=== PATIENT | female | born 1955 | race Caucasian/White ===

== ENCOUNTER → 2023-08-31 13:34 | Outpatient (REF) | payer MEDICARE, OTHER, SELFPAY ==
[2023-08-31 14:40] LABS: Vitamin D, 25-OH*** 47.2 ng/mL (30-80)
== END ==
LOC: RAD 13:34
PROVIDERS: ATTENDING PHYSICIAN Internal Medicine Rheumatology
DX: L40.59 Other psoriatic arthropathy (principal); E55.9 Vitamin D deficiency, unspecified
CPT/HCPCS: 36415; 73130; 82306

== ENCOUNTER → 2023-12-03 15:29 | Outpatient (REF) | payer MEDICARE, OTHER, SELFPAY ==
[2023-12-03 19:33] LABS: % Eosinophils 1.9 % (0-6); % Immature Granulocytes 0.5 % (0-0.5); % Lymphocytes 31.4 % (20.5-51.1); % Monocytes 9.7 % (1.7-9.3); % Neutrophils 55.5 % (42.2-75.2); Absolute Eosinophils 0.1 10^3/uL (0-0.7); Absolute Lymphocytes 1.3 10^3/uL (1.2-3.4); Absolute Monocytes 0.4 10^3/uL (0.1-0.6); Absolute Neutrophils 2.3 10^3/uL (1.4-6.5); Hematocrit 41.3 % (37.0-47.0); Hemoglobin 12.9 g/dL (12.0-16.0); Mean Corp Hgb Conc. 31.2 g/dL (33.0-37.0); Mean Corpuscular Hgb 30.1 pg (27.0-31.0); Mean Corpuscular Volume 96.5 fL (81.0-99.0); Mean Platelet Volume 11.1 fL (7.4-10.4); Nucleated Red Blood Cells % 0 %; Platelet Count 262 10^3/uL (130-400); Red Blood Cell Count 4.28 10^6/uL (4.20-5.40); White Blood Cell Count 4.1 10^3/uL (4.8-10.8)
[2023-12-03 19:39] LABS: ALT (SGPT) 15 U/L (0-35); AST (SGOT) 24 U/L (14-36); Albumin 4.2 g/dl (3.5-5.0); Alkaline Phosphatase 56 U/L (38-126); Blood Urea Nitrogen 26 mg/dl (7-17); Calcium 9.9 mg/dl (8.4-10.2); Carbon Dioxide 27 mmol/L (22-30); Chloride 103 mmol/L (98-107); Glucose 89 mg/dl (70-99); HDL Cholesterol 79 mg/dl; LDL Cholesterol, Calculated 140 mg/dl; Potassium 4.7 mmol/L (3.5-5.1); Sodium 137 mmol/L (135-145); Total Cholesterol 232 mg/dl (50-199); Total Protein 7.1 g/dl (6.3-8.2); Triglyceride 67 mg/dl (10-149); Very Low Density Lipoprotein 13 mg/dl (0-30); eGFR 54.39
[2023-12-03 20:09] LABS: TSH < 0.02 uIU/ml (0.47-4.68)
== END ==
LOC: CLAB 15:29
PROVIDERS: ATTENDING PHYSICIAN Family Medicine
DX: D72.819 Decreased white blood cell count, unspecified (principal); E78.00 Pure hypercholesterolemia, unspecified; E05.90 Thyrotoxicosis, unspecified without thyrotoxic crisis or storm
CPT/HCPCS: 36415; 80053; 80061; 84443; 85025

== ENCOUNTER → 2023-12-15 09:51 | Outpatient (REF) | payer MEDICARE, OTHER, SELFPAY ==
[2023-12-15 11:10] LABS: % Basophils 0.8 % (0-2); % Eosinophils 1.9 % (0-6); % Immature Granulocytes 0.3 % (0-0.5); % Lymphocytes 32.2 % (20.5-51.1); % Monocytes 10.2 % (1.7-9.3); % Neutrophils 54.6 % (42.2-75.2); Absolute Eosinophils 0.1 10^3/uL (0-0.7); Absolute Lymphocytes 1.2 10^3/uL (1.2-3.4); Absolute Monocytes 0.4 10^3/uL (0.1-0.6); Hematocrit 35.4 % (37.0-47.0); Hemoglobin 11.6 g/dL (12.0-16.0); Mean Corp Hgb Conc. 32.8 g/dL (33.0-37.0); Mean Corpuscular Hgb 30.4 pg (27.0-31.0); Mean Corpuscular Volume 92.9 fL (81.0-99.0); Mean Platelet Volume 10.9 fL (7.4-10.4); Nucleated Red Blood Cells % 0 %; Platelet Count 235 10^3/uL (130-400); Red Blood Cell Count 3.81 10^6/uL (4.20-5.40); Red Cell Dist. Width 13.9 % (11.5-14.5); White Blood Cell Count 3.6 10^3/uL (4.8-10.8)
[2023-12-15 11:40] LABS: Erythrocyte Sed Rate 13 mm/hour (0-20)
[2023-12-15 11:43] LABS: ALT (SGPT) 17 U/L (0-35); AST (SGOT) 22 U/L (14-36); Albumin 3.9 g/dl (3.5-5.0); Alkaline Phosphatase 41 U/L (38-126); Blood Urea Nitrogen 21 mg/dl (7-17); Calcium 9.8 mg/dl (8.4-10.2); Carbon Dioxide 27 mmol/L (22-30); Chloride 104 mmol/L (98-107); Glucose 85 mg/dl (70-99); Potassium 4.5 mmol/L (3.5-5.1); Sodium 137 mmol/L (135-145); Total Bilirubin 1.1 mg/dl (0.2-1.3); Total Protein 6.4 g/dl (6.3-8.2); eGFR 54.39
[2023-12-15 12:01] LABS: C-Reactive Protein < 5.00 mg/L (0.0-10.00)
== END ==
LOC: REG 09:51
PROVIDERS: ATTENDING PHYSICIAN Internal Medicine Rheumatology; FAMILY PHYSICIAN Family Medicine
DX: L40.59 Other psoriatic arthropathy (principal)
CPT/HCPCS: 36415; 80053; 85025; 85652; 86140

== ENCOUNTER 2024-01-18 11:04 | Emergency (ER) | payer MEDICARE, OTHER, SELFPAY ==
[2024-01-18 11:12] VITALS: BP 101/65
--- NOTE | 2024-01-18 13:02 | ED.GENMED ---
History of Present Illness
General
Chief Complaint: Musculo-Skeletal Complaint
Source: patient and family
Exam Limitations: none
Time Seen by Provider: 01/18/24 12:31
History of Present Illness
History of Present Illness:
68-year-old female presents with pain in her right buttock down her right leg. Patient states she was moving some furniture after her son had painted yesterday. Patient states that the pain gradually is worsened. She admits that she did not fall.
She is unable to pinpoint pain as she states it seems deep. She does have history of psoriatic arthritis. Patient has been taking Aleve at home. She did not take anything today. She denies bowel or bladder incontinence. No motor weakness.
Does report some back pain.
Past History
Past History
ED Past Medical History: Other (psoriatic arthritis, restless leg, irritable bowel syndrome, GERD, fibroid, leukopenia)
Social History
Tobacco: Non-smoker
Alcohol: None
Drug: None
Personal:
Living: with family
Phy Exam
Physical Exam
Physical Exam:
CONSTITUTIONAL Patient alert and oriented to person, place and time. Well-appearing. Vital signs reviewed.
HEAD atraumatic, normocephalic.
EYES eyelids normal to inspection, Extraocular muscles intact, Conjunctiva normal, Sclera normal.
NECK normal range of motion, Trachea midline, no jugular venous distention.
RESPIRATORY CHEST No respiratory distress noted, Chest expansion equal
ABDOMEN No distention.
BACK normal inspection, no obvious deformities, moderate right lumbar paraspinal tenderness
UPPER EXTREMITY range of motion normal, Motor strength normal, no cyanosis, no edema.
LOWER EXTREMITY range of motion normal, Motor strength normal, no cyanosis, no edema. Normal distal perfusion. No pain with internal or external rotation actively or passively of the hip. No pain with active or passive flexion of the hip.
Positive straight leg raise at about 45 degrees.
NEURO Speech normal, No focal motor deficits, Corine coma scale 15, Memory normal, Cranial Nerves intact to screening exam.
SKIN skin warm, dry, and normal in color.
PSYCHIATRIC patient oriented to person place and time, Normal affect.
Course
Orders/Labs/Results
Orders:
Orders
01/18/24 13:01
Ketorolac [Toradol] 60 mg IM NOW STA
Prednisone [Deltasone] 50 mg PO NOW STA
Vital Signs
Initial and Last Documented VS:
Initial Vital Signs
Temp Pulse Resp BP Pulse Ox
98.2 F 70 16 101/65 98
01/18/24 11:12 01/18/24 11:12 01/18/24 11:12 01/18/24 11:12 01/18/24 11:12
Last Documented Vital Signs
Temp Pulse Resp BP Pulse Ox
98.2 F 70 16 101/65 98
01/18/24 11:12 01/18/24 11:12 01/18/24 11:12 01/18/24 11:12 01/18/24 11:12
MDM/Problems Addressed
Differential Diagnosis Includes:
Bursitis, subluxation, dislocation, fracture, septic arthritis, arthritis, lidocaine
MDM/Problems Addressed:
Lumbar radiculopathy, chronic psoriatic arthritis
*Pulse Oximetry
Patient hypoxic: no
*Critical Care Note
Total Time (30-74mins, 75-104mins- exclusive of procedures): Not Applicable
Data Reviewed
Source: patient and family
Prescriptions/Medications Considered But Not Given:
Consider narcotics for pain control the patient states that she does not take narcotics
Further Testing Considered But Not Given:
Considered imaging of the hip but patient with no fall. No clinical suspicion for actual joint dysfunction as she is full normal range of motion without pain
Patient Management
Escalation/DeEscalation of care consider admission/obs:
68-year-old female who presents with pain in the right leg after lifting furniture. I suspect lumbar radiculopathy. Trial steroids and outpatient follow-up. Continue NSAIDs as an outpatient
ED Attending Note
-
Portions of this chart may have been created with voice recognition software.� Occasional wrong word or��sound alike� substitutions may have occurred due to the inherent limitations of voice recognition software.
Discharge Plan
Departure
Patient Disposition: Home (Routine Discharge)
Date of Disposition: 01/18/24
Time of Disposition: 13:02
Patient with high blood pressure during this ER visit?: No
Discharge Problem:
Acute lumbar radiculopathy
Instructions: Radiculopathy (DC)
Prescriptions:
New
prednisone 10 mg Tablet
See Rx Instructions .ROUTE .COMPLEX Qty: 45 0RF
Rx Instructions:
Take By Mouth:
50 mg daily x3 days, 40 mg daily x3 days,
30 mg daily x3 days, 20 mg daily x3 days,
10 mg daily x3 days
No Action
fexofenadine [Emma] 180 MG tablet
180 mg PO DAILY
duloxetine 60 MG capsule,delayed release(DR/EC)
60 mg PO DAILY
L.acidoph, paracasei,B. lactis 1 EACH capsule
1 ea PO DAILY
ascorbic acid (vitamin C) [Vitamin C] 500 MG tablet
500 mg PO DAILY
pantoprazole 40 MG tablet,delayed release (DR/EC)
40 mg PO DAILY
fiber [Fiber Off] 1 EACH tablet
1 tab PO BID
magnesium 250 MG tablet
250 mg PO DAILY
cholecalciferol (vitamin D3) 2,000 UNITS tablet
2,000 units PO DAILY
calcium-vitamin D3-vitamin K 1 EACH tablet,chewable
1 ea PO DAILY
Dim 300 MG
1 tab PO DAILY
mupirocin 1 APPLIC ointment
1 applic intranasal BID Qty: 1 0RF
diazepam [Valium] 5 MG tablet
0.5 - 1 tab PO HSPRN PRN (Reason: Anxiety)
sennosides [senna] 1 TABLET tablet
2 tab PO BID 0RF
lidocaine [Aspercreme (lidocaine)] 1 PATCH adhesive patch,medicated
2 patch topical DAILY Qty: 14 0RF
Rx Instructions:
Over the counter. Remove nightly.
Apply to left thigh. Do not place over incision.
aspirin 325 MG tablet
325 mg PO DAILY Qty: 28 0RF
Rx Instructions:
Take daily x4 weeks for blood clot prevention.
docusate sodium 100 MG capsule
100 mg PO BID 0RF
acetaminophen 500 MG tablet
1,000 mg PO Q6H Qty: 60 0RF
Rx Instructions:
Do not exceed >4000 mg daily.
hydromorphone 2 MG tablet
2 mg PO Q4HPRN PRN (Reason: moderate-severe pain) Qty: 30 0RF
Rx Instructions:
1 tab moderate pain or 2 if pain severe
dx total joint
ongoing therapy
celecoxib 200 MG capsule
200 mg PO DAILY Qty: 30 0RF
Rx Instructions:
Take with food.
Do not take within 2 hours of Aspirin.
famotidine 40 MG tablet
40 mg PO HS Qty: 0 0RF
docosahexaenoic acid-epa 1 CAP capsule
1 cap PO DAILY Qty: 0 0RF
Rx Instructions:
Resume in 1 week.
tofacitinib [Xeljanz XR] 11 MG tablet extended release 24 hr
11 mg PO DAILY Qty: 0 0RF
Rx Instructions:
Skip one dose after surgery.
Bio-Te
1 dose IM .EVERY3-4MONTHS Qty: 0 0RF
Patient Comments:
INJECTED INTO HIP; last dose 10/2020 - will be skipping 03/2021 dose
Rx Instructions:
DO NOT RESUME UNTIL DISCUSSED WITH SURGEON
Referrals:
Tom Gallagher, DO [Family Provider] -
Activity Restrictions/Additional Instructions:
Please see your doctor in the next 1 week for follow-up and reevaluation. Return immediately for leg weakness, bowel or bladder incontinence, worsening pain, fevers or any other concerns.
Interventions
Interventions:
ED-Musculoskeletal Assessment Last Done: 01/18/24 13:00
Discharge Date and Time
Print Language: VENEZUELAN
[2024-01-18] MEDS: DELTASONE 50 MG PO (13:07)
[2024-01-18] MEDS: TORADOL 60 MG IM (13:07)
== END 2024-01-18 14:01 | disposition home or self-care (01) ==
LOC: EMR 11:04
PROVIDERS: EMERGENCY PHYSICIAN Emergency Medicine; FAMILY PHYSICIAN Family Medicine
DX: M54.16 Radiculopathy, lumbar region (principal)
CPT/HCPCS: 99284; 96372

== ENCOUNTER → 2024-02-01 09:04 | Outpatient (REF) | payer MEDICARE, OTHER, SELFPAY | LOC: RAD 09:04 | PROVIDERS: ATTENDING PHYSICIAN Family Medicine | DX: M54.41 Lumbago with sciatica, right side (principal); M54.42 Lumbago with sciatica, left side | CPT/HCPCS: 72110 ==

== ENCOUNTER → 2024-02-04 07:37 | Outpatient (REF) | payer MEDICARE, OTHER, SELFPAY | LOC: EMG 07:37 | PROVIDERS: ATTENDING PHYSICIAN Family Medicine | DX: R20.2 Paresthesia of skin (principal); R20.0 Anesthesia of skin | CPT/HCPCS: 95886; 95911 ==

== ENCOUNTER → 2024-03-21 11:02 | Outpatient (REF) | payer MEDICARE, OTHER, SELFPAY ==
[2024-03-21 11:46] LABS: % Basophils 1.1 % (0-2); % Immature Granulocytes 0.3 % (0-0.5); % Lymphocytes 42.8 % (20.5-51.1); % Monocytes 9.5 % (1.7-9.3); % Neutrophils 40.3 % (42.2-75.2); Absolute Eosinophils 0.2 10^3/uL (0-0.7); Absolute Lymphocytes 1.5 10^3/uL (1.2-3.4); Absolute Monocytes 0.3 10^3/uL (0.1-0.6); Absolute Neutrophils 1.4 10^3/uL (1.4-6.5); Hematocrit 39.5 % (37.0-47.0); Hemoglobin 12.9 g/dL (12.0-16.0); Mean Corp Hgb Conc. 32.7 g/dL (33.0-37.0); Mean Corpuscular Hgb 29.2 pg (27.0-31.0); Mean Corpuscular Volume 89.4 fL (81.0-99.0); Mean Platelet Volume 10.8 fL (7.4-10.4); Nucleated Red Blood Cells % 0 %; Platelet Count 242 10^3/uL (130-400); Red Blood Cell Count 4.42 10^6/uL (4.20-5.40); Red Cell Dist. Width 12.8 % (11.5-14.5); White Blood Cell Count 3.5 10^3/uL (4.8-10.8)
[2024-03-21 13:28] LABS: Folate 3.3 ng/ml (2.76-20); Vitamin B12 627 pg/ml (239-931)
[2024-03-22 19:30] LABS: Copper, Serum 97.1 ug/dL (80.0-155.0)
== END ==
LOC: REG 11:02
PROVIDERS: ATTENDING PHYSICIAN Internal Medicine Hematology & Oncology; FAMILY PHYSICIAN Family Medicine
DX: D72.819 Decreased white blood cell count, unspecified (principal); D51.9 Vitamin B12 deficiency anemia, unspecified
CPT/HCPCS: 36415; 82525; 82607; 82746; 85025

== ENCOUNTER → 2024-04-21 06:20 | Outpatient (REF) | payer MEDICARE, OTHER, SELFPAY ==
[2024-04-21 07:30] LABS: % Basophils 1.1 % (0-2); % Eosinophils 8.5 % (0-6); % Immature Granulocytes 0.3 % (0-0.5); % Lymphocytes 41.2 % (20.5-51.1); % Monocytes 9.6 % (1.7-9.3); % Neutrophils 39.3 % (42.2-75.2); Absolute Eosinophils 0.3 10^3/uL (0-0.7); Absolute Lymphocytes 1.5 10^3/uL (1.2-3.4); Absolute Monocytes 0.4 10^3/uL (0.1-0.6); Absolute Neutrophils 1.4 10^3/uL (1.4-6.5); Hematocrit 37.8 % (37.0-47.0); Hemoglobin 12.6 g/dL (12.0-16.0); Mean Corp Hgb Conc. 33.3 g/dL (33.0-37.0); Mean Corpuscular Hgb 30.2 pg (27.0-31.0); Mean Corpuscular Volume 90.6 fL (81.0-99.0); Nucleated Red Blood Cells % 0 %; Platelet Count 205 10^3/uL (130-400); Red Blood Cell Count 4.17 10^6/uL (4.20-5.40); White Blood Cell Count 3.6 10^3/uL (4.8-10.8)
[2024-04-21 07:53] LABS: ALT (SGPT) 16 U/L (0-35); AST (SGOT) 17 U/L (14-36); Albumin 3.9 g/dl (3.5-5.0); Alkaline Phosphatase 48 U/L (38-126); Blood Urea Nitrogen 21 mg/dl (7-17); Calcium 9.8 mg/dl (8.4-10.2); Carbon Dioxide 29 mmol/L (22-30); Chloride 104 mmol/L (98-107); Erythrocyte Sed Rate 18 mm/hour (0-20); Glucose 105 mg/dl (70-99); Potassium 4.4 mmol/L (3.5-5.1); Sodium 141 mmol/L (135-145); Total Bilirubin 0.8 mg/dl (0.2-1.3); Total Protein 6.4 g/dl (6.3-8.2); eGFR > 60.00
[2024-04-21 08:17] LABS: Vitamin D, 25-OH*** 41.7 ng/mL (30-80)
[2024-04-23 07:44] LABS: Quantiferon Mitogen minus NIL 9.98 IU/mL; Quantiferon NIL 0.02 IU/mL; Quantiferon TB Gold Plus Negative (Negative)
== END ==
LOC: REG 06:20
PROVIDERS: ATTENDING PHYSICIAN Internal Medicine Rheumatology; FAMILY PHYSICIAN Family Medicine
DX: L40.59 Other psoriatic arthropathy (principal); E55.9 Vitamin D deficiency, unspecified
CPT/HCPCS: 36415; 80053; 82306; 85025; 85652; 86140; 86480

== ENCOUNTER → 2024-06-28 11:22 | Outpatient (REF) | payer MEDICARE, OTHER, SELFPAY | LOC: HWRAD 11:22 | PROVIDERS: ATTENDING PHYSICIAN Orthopaedic Surgery; FAMILY PHYSICIAN Family Medicine; REFERRING PHYSICIAN Psychiatry & Neurology Neurology | DX: T84.033A Mechanical loosening of internal left knee prosthetic joint, initial encounter (principal); M46.1 Sacroiliitis, not elsewhere classified | CPT/HCPCS: 72110; 73502; 73700 ==

== ENCOUNTER 2024-07-22 06:24 | Day surgery (SDC) | payer MEDICARE, OTHER, SELFPAY | END 2024-07-22 13:44 | disposition home or self-care (01) | LOC: GI 06:24 | PROVIDERS: ATTENDING PHYSICIAN Specialist | DX: R13.10 Dysphagia, unspecified (principal); Q39.9 Congenital malformation of esophagus, unspecified; K44.9 Diaphragmatic hernia without obstruction or gangrene; K31.89 Other diseases of stomach and duodenum; K29.50 Unspecified chronic gastritis without bleeding; K31.7 Polyp of stomach and duodenum | CPT/HCPCS: 43239; 88305; 88342 ==

== ENCOUNTER → 2024-08-01 10:42 | Outpatient (REF) | payer MEDICARE, OTHER, SELFPAY | LOC: WDC 10:42 | PROVIDERS: ATTENDING PHYSICIAN Family Medicine | DX: Z12.31 Encounter for screening mammogram for malignant neoplasm of breast (principal) | CPT/HCPCS: 77063; 77067 ==

== ENCOUNTER → 2024-08-02 07:56 | Outpatient (REF) | payer MEDICARE, OTHER, SELFPAY ==
[2024-08-02 10:09] LABS: % Basophils 0.9 % (0-2); % Eosinophils 1.8 % (0-6); % Immature Granulocytes 0.4 % (0-0.5); % Lymphocytes 38.9 % (20.5-51.1); % Monocytes 8.2 % (1.7-9.3); % Neutrophils 49.8 % (42.2-75.2); Absolute Eosinophils 0.1 10^3/uL (0-0.7); Absolute Lymphocytes 1.8 10^3/uL (1.2-3.4); Absolute Monocytes 0.4 10^3/uL (0.1-0.6); Absolute Neutrophils 2.3 10^3/uL (1.4-6.5); Hematocrit 38.5 % (37.0-47.0); Hemoglobin 12.6 g/dL (12.0-16.0); Mean Corp Hgb Conc. 32.7 g/dL (33.0-37.0); Mean Corpuscular Hgb 29.6 pg (27.0-31.0); Mean Corpuscular Volume 90.6 fL (81.0-99.0); Mean Platelet Volume 10.7 fL (7.4-10.4); Nucleated Red Blood Cells % 0 %; Platelet Count 251 10^3/uL (130-400); Red Blood Cell Count 4.25 10^6/uL (4.20-5.40); Red Cell Dist. Width 13.3 % (11.5-14.5); White Blood Cell Count 4.5 10^3/uL (4.8-10.8)
[2024-08-02 10:51] LABS: ALT (SGPT) 18 U/L (0-35); AST (SGOT) 20 U/L (14-36); Alkaline Phosphatase 64 U/L (38-126); Blood Urea Nitrogen 24 mg/dl (7-17); Calcium 9.5 mg/dl (8.4-10.2); Carbon Dioxide 30 mmol/L (22-30); Chloride 101 mmol/L (98-107); Glucose 82 mg/dl (70-99); HDL Cholesterol 64 mg/dl; LDL Cholesterol, Calculated 155 mg/dl; Potassium 4.3 mmol/L (3.5-5.1); Sodium 138 mmol/L (135-145); Total Bilirubin 0.8 mg/dl (0.2-1.3); Total Cholesterol 230 mg/dl (50-199); Total Protein 6.5 g/dl (6.3-8.2); Triglyceride 59 mg/dl (10-149); Very Low Density Lipoprotein 11 mg/dl (0-30); eGFR > 60.00
[2024-08-02 11:26] LABS: TSH < 0.02 uIU/ml (0.47-4.68)
== END ==
LOC: REG 07:56
PROVIDERS: ATTENDING PHYSICIAN Family Medicine
DX: L40.50 Arthropathic psoriasis, unspecified (principal); K21.9 Gastro-esophageal reflux disease without esophagitis; F32.0 Major depressive disorder, single episode, mild; E78.00 Pure hypercholesterolemia, unspecified; M48.061 Spinal stenosis, lumbar region without neurogenic claudication; R07.89 Other chest pain
CPT/HCPCS: 36415; 80053; 80061; 84443; 85025

== ENCOUNTER → 2024-08-15 08:19 | Outpatient (REF) | payer MEDICARE, OTHER, SELFPAY | LOC: RST 08:19 | PROVIDERS: ATTENDING PHYSICIAN Specialist; FAMILY PHYSICIAN Family Medicine | DX: R13.10 Dysphagia, unspecified (principal) | CPT/HCPCS: 74230; 92611 ==

== ENCOUNTER → 2024-12-08 15:51 | Outpatient (REF) | payer MEDICARE, OTHER, SELFPAY ==
[2024-12-08 16:46] LABS: % Eosinophils 3.3 % (0-6); % Immature Granulocytes 0.2 % (0-0.5); % Lymphocytes 37.6 % (20.5-51.1); % Monocytes 6.4 % (1.7-9.3); % Neutrophils 51.5 % (42.2-75.2); Absolute Basophils 0.1 10^3/uL (0-0.2); Absolute Eosinophils 0.2 10^3/uL (0-0.7); Absolute Lymphocytes 1.8 10^3/uL (1.2-3.4); Absolute Monocytes 0.3 10^3/uL (0.1-0.6); Absolute Neutrophils 2.5 10^3/uL (1.4-6.5); Hemoglobin 12.1 g/dL (12.0-16.0); Mean Corp Hgb Conc. 31.8 g/dL (33.0-37.0); Mean Corpuscular Hgb 29.7 pg (27.0-31.0); Mean Corpuscular Volume 93.4 fL (81.0-99.0); Mean Platelet Volume 11.5 fL (7.4-10.4); Nucleated Red Blood Cells % 0 %; Platelet Count 283 10^3/uL (130-400); Red Blood Cell Count 4.07 10^6/uL (4.20-5.40); Red Cell Dist. Width 12.8 % (11.5-14.5); White Blood Cell Count 4.8 10^3/uL (4.8-10.8)
[2024-12-08 16:58] LABS: ALT (SGPT) 13 U/L (0-35); AST (SGOT) 19 U/L (14-36); Albumin 4.1 g/dl (3.5-5.0); Alkaline Phosphatase 69 U/L (38-126); Blood Urea Nitrogen 15 mg/dl (7-17); Carbon Dioxide 28 mmol/L (22-30); Chloride 108 mmol/L (98-107); Glucose 101 mg/dl (70-99); Iron 102 ug/dl (37-170); Potassium 4.2 mmol/L (3.5-5.1); Sodium 142 mmol/L (135-145); Total Protein 6.9 g/dl (6.3-8.2); eGFR > 60.00
[2024-12-08 17:06] LABS: Percent Saturation 41 % (20-50); Total Iron Binding Capacity 243 ug/dl (265-497)
[2024-12-08 17:13] LABS: Free T3 4.74 pg/ml (2.77-5.27); Free T4 2.53 ng/dl (0.78-2.19)
[2024-12-08 17:27] LABS: TSH < 0.02 uIU/ml (0.47-4.68)
== END ==
LOC: CLAB 15:51
PROVIDERS: ATTENDING PHYSICIAN Family Medicine
DX: R63.4 Abnormal weight loss (principal); R68.89 Other general symptoms and signs; E05.90 Thyrotoxicosis, unspecified without thyrotoxic crisis or storm; L40.50 Arthropathic psoriasis, unspecified; R79.89 Other specified abnormal findings of blood chemistry
CPT/HCPCS: 36415; 80053; 82728; 83540; 83550; 84439; 84443; 84481; 85025

== ENCOUNTER → 2024-12-19 08:41 | Outpatient (REF) | payer MEDICARE, OTHER, SELFPAY ==
[2024-12-19 09:35] LABS: % Eosinophils 4.3 % (0-6); % Immature Granulocytes 0.3 % (0-0.5); % Lymphocytes 35.2 % (20.5-51.1); % Monocytes 6.6 % (1.7-9.3); % Neutrophils 52.6 % (42.2-75.2); Absolute Eosinophils 0.2 10^3/uL (0-0.7); Absolute Lymphocytes 1.4 10^3/uL (1.2-3.4); Absolute Monocytes 0.3 10^3/uL (0.1-0.6); Absolute Neutrophils 2.1 10^3/uL (1.4-6.5); Hematocrit 37.7 % (37.0-47.0); Hemoglobin 12.1 g/dL (12.0-16.0); Mean Corp Hgb Conc. 32.1 g/dL (33.0-37.0); Mean Corpuscular Hgb 29.5 pg (27.0-31.0); Mean Platelet Volume 10.7 fL (7.4-10.4); Nucleated Red Blood Cells % 0 %; Platelet Count 242 10^3/uL (130-400); White Blood Cell Count 3.9 10^3/uL (4.8-10.8)
[2024-12-19 10:01] LABS: C-Reactive Protein < 5.00 mg/L (0.0-10.00)
[2024-12-19 10:04] LABS: ALT (SGPT) 18 U/L (0-35); AST (SGOT) 21 U/L (14-36); Alkaline Phosphatase 58 U/L (38-126); Blood Urea Nitrogen 13 mg/dl (7-17); Calcium 10.1 mg/dl (8.4-10.2); Carbon Dioxide 28 mmol/L (22-30); Chloride 108 mmol/L (98-107); Glucose 90 mg/dl (70-99); HDL Cholesterol 64 mg/dl; LDL Cholesterol, Calculated 157 mg/dl; Potassium 4.4 mmol/L (3.5-5.1); Sodium 142 mmol/L (135-145); Total Bilirubin 0.8 mg/dl (0.2-1.3); Total Cholesterol 240 mg/dl (50-199); Total Protein 6.6 g/dl (6.3-8.2); Triglyceride 99 mg/dl (10-149); Very Low Density Lipoprotein 19 mg/dl (0-30); eGFR > 60.00
[2024-12-19 10:07] LABS: Erythrocyte Sed Rate 10 mm/hour (0-20)
[2024-12-21 09:54] LABS: Lipoprotein a (Lp a) <6 mg/dL (<=29)
== END ==
LOC: RAD 08:41
PROVIDERS: ATTENDING PHYSICIAN Internal Medicine Rheumatology; FAMILY PHYSICIAN Internal Medicine Cardiovascular Disease
DX: M85.89 Other specified disorders of bone density and structure, multiple sites (principal); L40.59 Other psoriatic arthropathy; Z82.49 Family history of ischemic heart disease and other diseases of the circulatory system; E78.5 Hyperlipidemia, unspecified
CPT/HCPCS: 36415; 77080; 80053; 80061; 83695; 85025; 85652; 86140

== ENCOUNTER → 2024-12-22 09:52 | Outpatient (REF) | payer MEDICARE, OTHER, SELFPAY | LOC: RAD 09:52 | PROVIDERS: ATTENDING PHYSICIAN Family Medicine; FAMILY PHYSICIAN Family Medicine | DX: E05.90 Thyrotoxicosis, unspecified without thyrotoxic crisis or storm (principal); E04.2 Nontoxic multinodular goiter | CPT/HCPCS: 76536 ==

== ENCOUNTER → 2024-12-23 10:10 | Outpatient (REF) | payer MEDICARE, OTHER, SELFPAY | LOC: HWRAD 10:10 | PROVIDERS: ATTENDING PHYSICIAN Internal Medicine Cardiovascular Disease; FAMILY PHYSICIAN Family Medicine | DX: R94.31 Abnormal electrocardiogram [ECG] [EKG] (principal); G47.33 Obstructive sleep apnea (adult) (pediatric); E78.00 Pure hypercholesterolemia, unspecified | CPT/HCPCS: 75571 ==

== ENCOUNTER → 2025-01-10 06:35 | Outpatient (REF) | payer MEDICARE, OTHER, SELFPAY | LOC: RAD 06:35 | PROVIDERS: ATTENDING PHYSICIAN Internal Medicine Endocrinology, Diabetes & Metabolism; FAMILY PHYSICIAN Family Medicine | DX: E05.90 Thyrotoxicosis, unspecified without thyrotoxic crisis or storm (principal); E04.2 Nontoxic multinodular goiter | CPT/HCPCS: 78014; A9516 ==

== ENCOUNTER 2025-02-18 14:24 | Emergency (ER) | payer MEDICARE, OTHER, SELFPAY ==
[2025-02-18 14:27] VITALS: BP 112/68
--- NOTE | 2025-02-18 15:25 | ED.GENMED ---
History of Present Illness
General
Chief Complaint: Back Pain
Time Seen by Provider: 02/18/25 15:08
Nursing documentation reviewed up to this point in time: agreed with
History of Present Illness
History of Present Illness:
69-year-old female presents to the ER for treatment of pain in her right buttock similar to prior episodes of back pain which led to sciatica last year. Patient states that she underwent knee replacement on the left earlier this year. She has been
healing well. She states that she noted some lower back discomfort over the past few days, mainly on the right side. She now notes some pain in the left side of her buttock also. She occasionally experiences pain radiating down her leg. No
weakness in the leg. No genital anesthesia. No loss of control of bowel or bladder. No fevers or chills. She did see her chiropractor yesterday without any improvement in her symptoms. She had some oxycodone at home to take which were leftover
from her left knee surgery which did not seem to alleviate her symptoms either. She states that when she had an exacerbation of her pain last year it responded very well to steroids. She does have an upcoming appointment scheduled with Dr. Edward,
spine surgery, in 2 weeks. She has been trying to participate in her physical therapy exercises that she recalls from last year.
Past History
Past History
ED Past Medical History: Other (psoriatic arthritis, restless leg, irritable bowel syndrome, GERD, fibroid, leukopenia)
Social History
Tobacco: Non-smoker
Alcohol: None
Drug: None
Personal:
Living: with family
Phy Exam
Physical Exam
Physical Exam:
Patient is awake, alert, appears no acute distress, easily moving on the stretcher without assistance, head is normocephalic atraumatic, mucous membranes moist, back examination reveals no midline pain on palpation of lumbar spine, pain is
reproducible on palpation of bilateral sacroiliac joints and bilateral piriformis, right greater than left, bilateral knees do not reveal any erythema or warmth, well-healed surgical incision over the left anterior knee, 2+ DP pulses present
symmetric bilateral feet, no foot drop seen, no peripheral edema noted
Course
Orders/Labs/Results
Orders:
Orders
02/18/25 15:30
Lidocaine [Lidocaine 4% Patch] 1 patch TOPICAL DAILY
Apply Lidocaine patch(s) to:: R SI joint
02/18/25 16:00
Prednisone [Deltasone] 50 mg PO DAILY
Labs are considered but not ordered due to overall benign appearance of patient, no fever
Vital Signs
Initial and Last Documented VS:
Initial Vital Signs
Temp Pulse Resp BP Pulse Ox
98.3 F 93 16 112/68 96
02/18/25 14:27 02/18/25 14:27 02/18/25 14:27 02/18/25 14:27 02/18/25 14:27
Last Documented Vital Signs
Temp Pulse Resp BP Pulse Ox
98.3 F 93 16 112/68 96
02/18/25 14:27 02/18/25 14:27 02/18/25 14:27 02/18/25 14:27 02/18/25 14:27
MDM/Problems Addressed
Differential Diagnosis Includes:
Differential diagnosis to consider but not limited to muscle spasm, strain, sacroiliac dysfunction, sacroiliitis, sciatica, lumbar radiculopathy along with other etiologies considered
*Pulse Oximetry
SaO2: 96
Oxygen Mode of Delivery: Room air
Patient hypoxic: no
*Critical Care Note
Total Time (30-74mins, 75-104mins- exclusive of procedures): Not Applicable
Update Note
Update Note:
I discussed with patient overall benign appearance and anticipated treatment plan including of burst of steroids, topical pain relieving patches and creams, continued exercises and need for outpatient follow-up. Patient agrees with plan at current.
Will provide small prescription of oxycodone to assist with additional pain relief. Patient and present at bedside expressed understanding of discharge instructions and had no questions prior to the department.
ED Attending Note
-
Portions of this chart may have been created with voice recognition software.� Occasional wrong word or��sound alike� substitutions may have occurred due to the inherent limitations of voice recognition software.
Discharge Plan
Departure
Patient Disposition: Home (Routine Discharge)
Date of Disposition: 02/18/25
Time of Disposition: 15:17
Patient with high blood pressure during this ER visit?: No
Discharge Problem:
Sacroiliac dysfunction, Sciatica
Instructions: Low Back Pain (DC), Sciatica (DC)
Prescriptions:
New
methylprednisolone [Medrol (Uli)] 4 mg tablets,dose pack
See Rx Instructions .ROUTE .COMPLEX Qty: 21 0RF
Rx Instructions:
orally per package directions
oxycodone 5 mg tablet
5 mg PO Q8H PRN (Reason: Pain) Qty: 7 0RF
No Action
fexofenadine [Emma] 180 MG tablet
180 mg PO DAILY
duloxetine 60 MG capsule,delayed release(DR/EC)
60 mg PO DAILY
L.acidoph,paracasei,B.animalis 1 EACH capsule
1 ea PO DAILY
ascorbic acid (vitamin C) [Vitamin C] 500 MG tablet
500 mg PO DAILY
pantoprazole 40 MG tablet,delayed release (DR/EC)
40 mg PO DAILY
fiber [Fiber Off] 1 EACH tablet
1 tab PO BID
magnesium 250 MG tablet
250 mg PO DAILY
cholecalciferol (vitamin D3) 2,000 UNITS tablet
2,000 units PO DAILY
calcium-vitamin D3-vitamin K 1 EACH tablet,chewable
1 ea PO DAILY
Dim 300 MG
1 tab PO DAILY
mupirocin 1 APPLIC ointment
1 applic intranasal BID Qty: 1 0RF
diazepam [Valium] 5 MG tablet
0.5 - 1 tab PO HSPRN PRN (Reason: Anxiety)
sennosides [senna] 1 TABLET tablet
2 tab PO BID 0RF
lidocaine [Aspercreme (lidocaine)] 1 PATCH adhesive patch,medicated
2 patch topical DAILY Qty: 14 0RF
Rx Instructions:
Over the counter. Remove nightly.
Apply to left thigh. Do not place over incision.
aspirin 325 MG tablet
325 mg PO DAILY Qty: 28 0RF
Rx Instructions:
Take daily x4 weeks for blood clot prevention.
docusate sodium 100 MG capsule
100 mg PO BID 0RF
acetaminophen 500 MG tablet
1,000 mg PO Q6H Qty: 60 0RF
Rx Instructions:
Do not exceed >4000 mg daily.
hydromorphone 2 MG tablet
2 mg PO Q4HPRN PRN (Reason: moderate-severe pain) Qty: 30 0RF
Rx Instructions:
1 tab moderate pain or 2 if pain severe
dx total joint
ongoing therapy
celecoxib 200 MG capsule
200 mg PO DAILY Qty: 30 0RF
Rx Instructions:
Take with food.
Do not take within 2 hours of Aspirin.
famotidine 40 MG tablet
40 mg PO HS Qty: 0 0RF
docosahexaenoic acid-epa 1 CAP capsule
1 cap PO DAILY Qty: 0 0RF
Rx Instructions:
Resume in 1 week.
tofacitinib [Xeljanz XR] 11 MG tablet extended release 24 hr
11 mg PO DAILY Qty: 0 0RF
Rx Instructions:
Skip one dose after surgery.
Bio-Te
1 dose IM .EVERY3-4MONTHS Qty: 0 0RF
Patient Comments:
INJECTED INTO HIP; last dose 10/2020 - will be skipping 03/2021 dose
Rx Instructions:
DO NOT RESUME UNTIL DISCUSSED WITH SURGEON
prednisone 10 mg Tablet
See Rx Instructions .ROUTE .COMPLEX Qty: 45 0RF
Rx Instructions:
Take By Mouth:
50 mg daily x3 days, 40 mg daily x3 days,
30 mg daily x3 days, 20 mg daily x3 days,
10 mg daily x3 days
Referrals:
Miguel Edward MD [Active, Orthopedics] - Keep scheduled appt
Activity Restrictions/Additional Instructions:
Complete Medrol Dosepak as prescribed. Please follow-up with Dr. Edward as currently scheduled for further evaluation and care. Please continue using your exercises to help with stretching and discomfort. You may use topical pain relieving patches
or creams (Salonpas or similar) to help with the discomfort. Return to the ER for any concern
Interventions
Interventions:
*Risk Screen - Suicide Last Done: 02/18/25 14:27
*Neglect/Abuse Screening Last Done: 02/18/25 14:27
Discharge Date and Time
Print Language: MICRONESIAN
[2025-02-18] MEDS: DELTASONE 50 MG PO (15:29)
[2025-02-18] MEDS: LIDOCAINE 4% PATCH 1 PATCH TOPICAL (15:30)
[2025-02-18 15:32] VITALS: BP 108/53
== END 2025-02-18 15:49 | disposition home or self-care (01) ==
LOC: EMR 14:24
PROVIDERS: EMERGENCY PHYSICIAN Emergency Medicine; FAMILY PHYSICIAN Family Medicine
DX: M53.3 Sacrococcygeal disorders, not elsewhere classified (principal); M54.40 Lumbago with sciatica, unspecified side; Z96.652 Presence of left artificial knee joint
CPT/HCPCS: 99283

== ENCOUNTER → 2025-03-19 06:34 | Outpatient (REF) | payer MEDICARE, OTHER, SELFPAY | LOC: PAVMRI 06:34 | PROVIDERS: ATTENDING PHYSICIAN Orthopaedic Surgery Orthopaedic Surgery of the Spine; FAMILY PHYSICIAN Family Medicine | DX: M48.062 Spinal stenosis, lumbar region with neurogenic claudication (principal) | CPT/HCPCS: 72148 ==

== ENCOUNTER 2025-03-21 06:18 | Day surgery (SDC) | payer MEDICARE, OTHER, SELFPAY ==
[2025-03-06 11:20] VITALS: BMI 25.6
--- NOTE | 2025-03-14 09:41 | PTCARENOTE ---
[place] in Dr. Mcnally's office made aware of WBC 2.8.
[2025-03-21] VITALS (8 sets, daily range): BP systolic 116–127; BP diastolic 52–68; BMI 25.6
[2025-03-21] MEDS: TYLENOL 1000 MG PO (08:11)
[2025-03-21] MEDS: NEURONTIN 300 MG PO (08:11)
[2025-03-21] MEDS: NORMOSOL-R/PLASMALYTE-A 1000 IV (08:12)
[2025-03-21] MEDS: HEPARIN 5000 UNITS SC (08:12)
--- NOTE | 2025-03-21 09:34 | OR.RPT ---
Operative Report
Operative Report
DATE OF OPERATION: March 21, 2025
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
POSTOPERATIVE DIAGNOSIS: Same
SURGEON: Jericho Mcnally M.D.
OPERATION: Left Thyroid Lobectomy - 02386
ANESTHESIA: GET
ESTIMATED BLOOD LOSS: 1 cc
DRAINS: None
SPECIMEN: left total thyroid lobe and isthmus
FINDINGS:
COMPLICATIONS: None
PROCEDURE:
The patient was taken to the operating room and placed in the usual supine position. After adequate general endotracheal anesthesia was established, the patient�s neck was extended, prepped, and draped in the typical sterile fashion. A 4 cm
transcervical incision was made two fingerbreadths above the sternal notch. The skin incision was made with the #15 blade, which was taken through the skin into the subcutaneous tissue. The underlying platysma muscle was divided, and subplatysmal
flaps were created superiorly to the thyroid cartilage and inferiorly to the sternal notch. Strap muscles were identified and at the midline.
Attention was turned to the patient�s left thyroid lobe. The left thyroid lobe was mobilized medially. During this process, the left middle thyroid vein and inferior thyroid artery were dissected and ligated with Ligasure. Next, the left superior
pole was taken down by dissecting and transecting the superior pole vessels with a Ligasure. The left thyroid lobe was mobilized medially. During this process, the left recurrent laryngeal nerve was identified and preserved throughout its entire
course. The left superior parathyroid gland was identified and preserved. The left thyroid lobe with isthmus was resected from the trachea and sent to the pathology department. After achieving adequate hemostasis, the strap muscle was approximated
with #3-0 Vicryl in a running fashion, and the platysma muscles were reapproximated with #3-0 Vicryl in an interrupted manner. The skin was then closed with #4-0 Monocryl in a running subcuticular technique. Steri-strips and sterile dressings were
applied. The patient tolerated the procedure well. The final instrument, needle, and sponge counts were correct.
== END 2025-03-21 11:30 | disposition home or self-care (01) ==
LOC: SDS 06:18
PROVIDERS: ATTENDING PHYSICIAN Surgery
DX: E05.11 Thyrotoxicosis with toxic single thyroid nodule with thyrotoxic crisis or storm (principal)
CPT/HCPCS: 60220; 88307

== ENCOUNTER → 2025-05-09 12:46 | Outpatient (REF) | payer MEDICARE, OTHER, SELFPAY | LOC: OLAB 12:46 | PROVIDERS: ATTENDING PHYSICIAN Internal Medicine Endocrinology, Diabetes & Metabolism; FAMILY PHYSICIAN Family Medicine | DX: E05.90 Thyrotoxicosis, unspecified without thyrotoxic crisis or storm (principal); Z01.818 Encounter for other preprocedural examination | CPT/HCPCS: 36415; 80053; 84443; 85027; 87070 ==

== ENCOUNTER 2025-05-10 06:21 | Day surgery (SDC) | payer MEDICARE, OTHER, SELFPAY | END 2025-05-10 09:51 | disposition home or self-care (01) | LOC: GI 06:21 | PROVIDERS: ATTENDING PHYSICIAN Specialist | DX: K57.30 Diverticulosis of large intestine without perforation or abscess without bleeding (principal); K59.00 Constipation, unspecified | CPT/HCPCS: G0105 ==

== ENCOUNTER 2025-05-24 06:18 | Day surgery (SDC) | payer MEDICARE, OTHER, SELFPAY ==
[2025-05-09 14:08] VITALS: BMI 25.5
[2025-05-19 10:50] VITALS: BMI 25.5
[2025-05-24] VITALS (21 sets, daily range): BP systolic 96–130; BP diastolic 42–65; PULSE 76–80; O2SAT 96; BMI 25.5
[2025-05-24] MEDS: CELEBREX 200 MG PO (07:18)
[2025-05-24] MEDS: LYRICA 150 MG PO (07:18)
[2025-05-24] MEDS: TYLENOL 1000 MG PO ×3 (07:18→21:19)
[2025-05-24] MEDS: METHOCARBAMOL 1500 MG PO ×3 (07:18→21:19)
[2025-05-24] MEDS: NORMOSOL-R/PLASMALYTE-A 1000 IV ×3 (07:34→21:11)
--- NOTE | 2025-05-24 08:00 | W.PN.UPDATE ---
Update Note
Progress Note Update
Lumbar spondylolisthesis s/p L4-L5 PSF w/ Dr Marcosu 05/24/25
- Pt will need back brace
- D/t PCN allergy, Clindamycin will be Rx upon d/c for further spinal prophylaxis
DVT prophylaxis - b/l SCDs/TEDs
Pulmonary nodules
SHANDA, no current device
- Monitor O2
- IS
- Add supplemental O2 HS
GERD with atypical chest pain - continue PPI therapy
Irritable bowel syndrome with constipation - add MOM HS to bowel regimen of Colace and Senna
Fibromyalgia - monitor pain and adjust pain meds as indicated
Multilevel DDD
Hypercholesterolemia
Moderate MR/TR
Venous varicosities
Colon and gastric polyps
Diverticulosis
Hemorrhoids
Hepatitis B hx
Fatty liver disease with history of abnormal LFTs
Vertigo
RLS
Multinodular goiter w/ h/o subclinical hyperthyroidism s/p resection
Scoliosis
OA s/p L TKA 03/2021
Rheumatoid and psoriatic arthritis
Squamous cell carcinoma, status post multiple excisions
Cystocele and rectocele, status post repair
Uterine fibroids
Depression
Anxiety
Osteopenia
Chronic leukopenia with borderline lymphocytopenia
[2025-05-24] MEDS: DILAUDID 0.5 MG IV ×2 (11:19→11:35)
[2025-05-24] MEDS: DILAUDID 0.25 MG IV (12:11)
--- NOTE | 2025-05-24 15:40 | PTCARENOTE ---
Pt arrived to [facility] s/p L4-L5 PSF. 4x4 with tegaderm on lower back c/d/i. 96% on 2L. Pedal pulses present with doppler. Radial pulses palpated. Admission questions answered. Bed locked and in lowest position. Care ongoing.
[2025-05-24] MEDS: PROTONIX 40 MG PO (15:45)
[2025-05-24] MEDS: PROZAC 40 MG PO (15:45)
[2025-05-24] MEDS: ULTRAM 50 MG PO ×2 (15:46→21:19)
[2025-05-24] MEDS: CLARITIN 10 MG PO (15:46)
[2025-05-24] MEDS: ANCEF 5 IV (17:35)
[2025-05-24] MEDS: LYRICA 75 MG PO (18:02)
[2025-05-24] MEDS: DECADRON 4 MG IV (20:05)
[2025-05-24] MEDS: COLACE 100 MG PO (20:06)
[2025-05-24] MEDS: SENOKOT 17.2 MG PO (20:06)
[2025-05-24] MEDS: VISBIOME 1 CAP PO (20:06)
[2025-05-24] MEDS: PEPCID 20 MG PO (21:19)
[2025-05-24] MEDS: MILK OF MAGNESIA 30 ML PO (21:19)
[2025-05-25] MEDS: ANCEF 5 IV (00:46)
[2025-05-25 03:06] VITALS: BP 117/62
[2025-05-25] MEDS: TYLENOL 1000 MG PO ×2 (03:35→08:02)
[2025-05-25] MEDS: ULTRAM 50 MG PO ×3 (03:35→12:11)
[2025-05-25] MEDS: LYRICA 75 MG PO (06:02)
[2025-05-25 06:41] LABS: Hematocrit 35.0 % (37.0-47.0); Hemoglobin 11.2 g/dL (12.0-16.0)
[2025-05-25 07:10] LABS: Blood Urea Nitrogen 10 mg/dl (7-17); Calcium 9.0 mg/dl (8.4-10.2); Carbon Dioxide 30 mmol/L (22-30); Chloride 101 mmol/L (98-107); Estimated Creatinine Clearance 59 ml/min; Glucose 123 mg/dl (70-99); Potassium 4.5 mmol/L (3.5-5.1); Sodium 133 mmol/L (135-145); eGFR > 60.00
[2025-05-25 07:40] VITALS: BP 102/56
[2025-05-25] MEDS: METHOCARBAMOL 1500 MG PO (07:49)
[2025-05-25] MEDS: VISBIOME 1 CAP PO (07:49)
[2025-05-25] MEDS: PROZAC 40 MG PO (07:49)
[2025-05-25] MEDS: COLACE 100 MG PO (07:49)
[2025-05-25] MEDS: PROTONIX 40 MG PO (07:49)
[2025-05-25] MEDS: SENOKOT 17.2 MG PO (07:49)
[2025-05-25] MEDS: DECADRON 4 MG IV (07:50)
[2025-05-25] MEDS: NORMOSOL-R/PLASMALYTE-A IV (07:51)
--- NOTE | 2025-05-25 08:16 | W.PN.SP ---
Today's Communication / Plan
-
s/p PSF
Doing well
D/c
Subjective / Objective
Subjective Data
PT doing well
Standing straighter
Objective Data
Vital Signs
Temp Pulse Resp BP Pulse Ox
97.7 F 62 16 117/62 94
05/25/25 03:06 05/25/25 03:06 05/25/25 03:06 05/25/25 03:06 05/25/25 03:06
Intake and Output
05/24/25 05/25/25 05/26/25
06:59 06:59 06:59
Intake Total 2810 / 2810
Balance 2810 / 2810
Intake:
Oral fluids 960 / 960
IV fluids (Total) 1850 / 1850
Normosol 350 / 350
Other:
Number of approximated MODERATE 1
amounts of urine
Number of approximated LARGE 3
amounts of urine
Lab Data
05/25/25 06:05
05/25/25 06:05
Physical Exam
-
NO weakness
[2025-05-25 09:07] VITALS: BP 106/49; BP 113/50; BP 117/56; PULSE 58; PULSE 67; O2SAT 100
--- NOTE | 2025-05-25 09:11 | CM ---
Cm reviewed medical records. CM met with patient in room. Patient confirmed demographics. Patient lives independently with . Patient does not have a history of VN, SNF or DME. Patient will leave with a back brace. Patient is active with her
PCP. When surgically cleared, patient will use [facility].
PLAN: home with .
[2025-05-25] MEDS: CLARITIN 10 MG PO (09:19)
--- NOTE | 2025-05-25 09:46 | W.PN.ORTHO ---
Today's Communication / Plan
-
Give Meclizine. Monitor dizziness further.
Await OT recs.
D/c possible for later today pending clinical stability.
Assessment
.
Distal Motor Intact: Yes
Dressing:
Clean, dry and intact.
Assessment:
Lumbar spondylolisthesis s/p L4-L5 PSF w/ Dr Edward 05/24/25
- Pt will need back brace
- D/t PCN allergy, Clindamycin will be Rx upon d/c for further spinal prophylaxis
DVT prophylaxis - b/l SCDs/TEDs
Mild dizziness, likely multifactorial - of note, dizziness not impairing pt's ability to work w/ PT. Still eager for d/c today.
- Will decrease pain meds to milder Tramadol vs Dilaudid. No more Methocarbamol.
- Will give Meclizine now for underlying vertigo. Can d/c as needed for home use
- Monitor prior to d/c
Pulmonary nodules
SHANDA, no current device
- O2 stable on RA
- IS
- Added supplemental O2 HS
GERD with atypical chest pain - continue PPI therapy
Irritable bowel syndrome with constipation - added MOM HS to bowel regimen of Colace and Senna
Fibromyalgia - monitor pain and adjust pain meds as indicated
- Pt requesting to d/c home Gabapentin in favor of tapered Lyrica dose
Multilevel DDD
Hypercholesterolemia
Moderate MR/TR
Venous varicosities
Colon and gastric polyps
Diverticulosis
Hemorrhoids
Hepatitis B hx
Fatty liver disease with history of abnormal LFTs
Vertigo
RLS
Multinodular goiter w/ h/o subclinical hyperthyroidism s/p resection
Scoliosis
OA s/p L TKA 03/2021
Rheumatoid and psoriatic arthritis
Squamous cell carcinoma, status post multiple excisions
Cystocele and rectocele, status post repair
Uterine fibroids
Depression
Anxiety
Osteopenia
Chronic leukopenia with borderline lymphocytopenia
Plan
.
Surgery / Date: L4-L5 PSF w/ Dr Edward 05/24/25
DVT Prophylaxis: Other (b/l SCDs/TEDS)
Activity:
Out of bed.
PT/OT
Discharge Plan: Home
Subjective
.
.:
Patient examined right before OT session.
Mild dizziness reported, likely 2* GA, post-op pain meds, and underlying vertigo. Dizziness, however, not impairing pt's ability to work w/ PT. Pt still hoping to be d/c today.
Denies any other new complaints.
AM labs relatively stable.
Eager for potential d/c today.
Vital Signs and Labs
.
Vital Signs and Labs:
Lab Results
05/25/25 06:05
05/25/25 06:05
Temp Pulse Resp BP Pulse Ox
97.8 F 67 16 102/56 98
05/25/25 07:40 05/25/25 07:40 05/25/25 07:40 05/25/25 07:40 05/25/25 07:40
Physical Exam
-
HEENT: No pallor, cyanosis, or jaundice. Throat clear.
NECK: Supple. No JVD.
RESPIRATORY: Lungs clear to auscultation.
CVS: S1, S2 normal. RRR.�
ABDOMEN: Soft, non-tender. No distension.
EXTREMITIES: Strength equal, no calf pain with palpation/dorsiflexion. Calves soft.
MACHINE ETCHER: AOx3. No focal deficits. landscape maintenance internship grossly intact
[2025-05-25 09:54] VITALS: BP 122/55
[2025-05-25] MEDS: ANTIVERT 12.5 MG PO (09:59)
--- NOTE | 2025-05-25 10:01 | W.DS.TRANS ---
DC Summary - Tobacco Stripper Hand
-
Discharge Instructions:
Discharge Diagnosis/Procedures Lumbar spondylolisthesis s/p L4-L5 PSF w/ Dr Marcosu
05/24/25
Diet Regular
Additional Diets Adequate hydration and minimize opioids to
prevent low blood pressure/dizziness.
Activity As tolerated
Additional Activity No heavy lifting >10 lbs
Driving Restrictions Not until seen by your Dr
Bathing Restrictions OK to shower in 4 days
Instructions:
Stand-Alone Forms: [facility]
Changes to Home Medications: Yes
Discharge Medications:
DC Medications w/original date entered in [employer]
L.acidoph,paracasei,B.animalis 10 billion cell capsule 1 ea PO DAILY Gastrointestinal issue 07/22/18
cholecalciferol (vitamin D3) 50 mcg (2,000 unit) tablet 2,000 units PO DAILY Supplement 08/29/20
famotidine 40 mg tablet 40 mg PO HS ##0 03/22/21
fexofenadine 180 mg tablet 180 mg PO DAILY 03/14/25
fluoxetine 40 mg capsule 40 mg PO DAILY 03/14/25
trazodone 50 mg tablet 25 mg PO HS 03/14/25
lansoprazole 40 mg PO DAILY 05/15/25
acetaminophen 500 mg tablet (Tylenol Extra Strength) 1,000 mg (2 x 500 mg) PO Q6H #60 tabs 05/25/25
clindamycin HCl 300 mg capsule (Cleocin HCl) 300 mg PO Q6H #20 caps 05/25/25
docusate sodium 100 mg capsule 100 mg PO BID #30 caps 05/25/25
magnesium hydroxide 400 mg/5 mL oral suspension (Milk of Magnesia) 30 ml PO HS #3,000 mL 05/25/25
meclizine 12.5 mg tablet 12.5 mg PO TID PRN dizziness #10 tabs 05/25/25
ondansetron HCl 4 mg tablet 4 mg PO Q6H PRN nausea and vomiting #30 tabs 05/25/25
pregabalin 75 mg capsule 75 mg PO BID neuropathic pain #15 caps 05/25/25
sennosides 8.6 mg tablet (Bella-bhavani) 17.2 mg (2 x 8.6 mg) PO BID #30 tabs 05/25/25
tramadol 50 mg tablet 50 - 100 mg (1 - 2 x 50 mg) PO Q6H PRN moderate-severe pain #30 tabs 05/25/25
Home Medication Changes
acetaminophen 500 mg tablet (Tylenol Extra Strength) 1,000 mg (2 x 500 mg) PO Q6H #60 tabs 05/25/25
clindamycin HCl 300 mg capsule (Cleocin HCl) 300 mg PO Q6H #20 caps 05/25/25
docusate sodium 100 mg capsule 100 mg PO BID #30 caps 05/25/25
magnesium hydroxide 400 mg/5 mL oral suspension (Milk of Magnesia) 30 ml PO HS #3,000 mL 05/25/25
meclizine 12.5 mg tablet 12.5 mg PO TID PRN dizziness #10 tabs 05/25/25
ondansetron HCl 4 mg tablet 4 mg PO Q6H PRN nausea and vomiting #30 tabs 05/25/25
pregabalin 75 mg capsule 75 mg PO BID neuropathic pain #15 caps 05/25/25
sennosides 8.6 mg tablet (Bella-bhavani) 17.2 mg (2 x 8.6 mg) PO BID #30 tabs 05/25/25
tramadol 50 mg tablet 50 - 100 mg (1 - 2 x 50 mg) PO Q6H PRN moderate-severe pain #30 tabs 05/25/25
Pending Results: No
[2025-05-25 13:00] VITALS: BP 113/63
== END 2025-05-25 13:39 | disposition home or self-care (01) ==
LOC: SDS 06:18
PROVIDERS: Physician Assistant Medical; ATTENDING PHYSICIAN Orthopaedic Surgery Orthopaedic Surgery of the Spine
DX: M43.16 Spondylolisthesis, lumbar region (principal)
CPT/HCPCS: 22612; 72100; 76000; 80048; 85014; 85018; 97116; 97162; 97167; 97530; 97535; C1713; C1776

== ENCOUNTER → 2025-05-29 06:25 | Outpatient (REF) | payer MEDICARE, OTHER, SELFPAY ==
[2025-05-29 07:59] LABS: Hematocrit 37.4 % (37.0-47.0); Hemoglobin 12.1 g/dL (12.0-16.0); Mean Corp Hgb Conc. 32.4 g/dL (33.0-37.0); Mean Corpuscular Volume 90.1 fL (81.0-99.0); Nucleated Red Blood Cells % 0 %; Platelet Count 264 10^3/uL (130-400); Red Cell Dist. Width 14.2 % (11.5-14.5)
[2025-05-29 09:10] LABS: C-Reactive Protein 62.30 mg/L (0.0-10.00)
[2025-05-29 11:25] LABS: ALT (SGPT) 47 U/L (0-35); AST (SGOT) 26 U/L (14-36); Albumin 4.1 g/dl (3.5-5.0); Alkaline Phosphatase 86 U/L (38-126); Blood Urea Nitrogen 14 mg/dl (7-17); Calcium 9.3 mg/dl (8.4-10.2); Carbon Dioxide 30 mmol/L (22-30); Chloride 101 mmol/L (98-107); Glucose 83 mg/dl (70-99); Potassium 4.5 mmol/L (3.5-5.1); Sodium 134 mmol/L (135-145); Total Protein 7.0 g/dl (6.3-8.2); eGFR > 60.00
[2025-05-29 17:09] LABS: Urine Character Slightly Cloudy (Clear)
[2025-05-29 17:23] LABS: Urine Red Blood Cell 0-2 /HPF (0-2); Urine Squamous Cell >20 /LPF (Few)
== END ==
LOC: REG 06:25
PROVIDERS: ATTENDING PHYSICIAN Internal Medicine; FAMILY PHYSICIAN Family Medicine
DX: T50.905A Adverse effect of unspecified drugs, medicaments and biological substances, initial encounter (principal); Z79.899 Other long term (current) drug therapy; M35.9 Systemic involvement of connective tissue, unspecified; M06.4 Inflammatory polyarthropathy; M32.9 Systemic lupus erythematosus, unspecified; Z51.81 Encounter for therapeutic drug level monitoring; L93.2 Other local lupus erythematosus; R76.0 Raised antibody titer; D68.61 Antiphospholipid syndrome
CPT/HCPCS: 36415; 80053; 81003; 81015; 82570; 84156; 85025; 85652; 86140; 86147; 86160; 87077; 87086; 87186

== ENCOUNTER → 2025-06-15 08:36 | Outpatient (REF) | payer MEDICARE, OTHER, SELFPAY | LOC: RAD 08:36 | PROVIDERS: ATTENDING PHYSICIAN Internal Medicine Pulmonary Disease; FAMILY PHYSICIAN Family Medicine | DX: M34.9 Systemic sclerosis, unspecified (principal); L40.9 Psoriasis, unspecified; M19.90 Unspecified osteoarthritis, unspecified site; R06.00 Dyspnea, unspecified | CPT/HCPCS: 71046 ==

== ENCOUNTER → 2025-06-20 13:19 | Outpatient (REF) | payer MEDICARE, OTHER, SELFPAY | LOC: HWRCS 13:19 | PROVIDERS: ATTENDING PHYSICIAN Internal Medicine Pulmonary Disease; FAMILY PHYSICIAN Family Medicine | DX: M34.9 Systemic sclerosis, unspecified (principal); L40.9 Psoriasis, unspecified; M19.90 Unspecified osteoarthritis, unspecified site; R06.00 Dyspnea, unspecified | CPT/HCPCS: 93306 ==